=== PATIENT | male | born 1995 | race African-American/Black ===

== ENCOUNTER 2016-07-17 18:43 | Emergency (ER) | payer OTHER ==
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
== END 2016-07-18 00:18 | disposition home or self-care (01) ==
LOC: CFTX 18:43 → CED 18:43 → CFTX 21:59
DX: S33.5XXA Sprain of ligaments of lumbar spine, initial encounter (principal); S13.4XXA Sprain of ligaments of cervical spine, initial encounter; V49.3XXA Car occupant (driver) (passenger) injured in unspecified nontraffic accident, initial encounter; Y92.488 Other paved roadways as the place of occurrence of the external cause
CPT/HCPCS: 72040; 72100; 99284